=== PATIENT | female | born 1975 | race Hispanic/Latino ===

== ENCOUNTER 2016-03-08 09:27 | Emergency (ER) | payer SELFPAY ==
[2016-03-08 10:08] VITALS: BP 148/93
[2016-03-08] MEDS ORDERED: NORCO 5/325 PO ONE (12:34)
--- NOTE | 2016-03-08 12:37 | Emergency Department Report ---
HPI - General Chief Complaint: Extremity Injury, Upper Time Seen by Provider: 03/08/16 12:25 - HPI HPI: 40-year-old female presents today with right elbow pain post injury that occurred at work 6 days ago. Patient states her elbow was out of socket and was put in place by a chiropractor. Denies history of similar symptoms. Tried Tylenol without relief. Describes her pain as a 9 out of 10 constant, sharp, throbbing pain. Denies numbness, weakness, paresthesias. Denies fever, chills , nausea, vomiting, chest pain, shortness of breath, abdominal pain. ED Past Medical Hx - Past Medical History Hx Arthritis: Yes Hx Seizures: Yes (withdrawal from Xanax) Hx Psychiatric Treatment: Yes (anxiety) Hx HIV: No Additional medical history: anxiety, recent pneumonia diagnosis, - Surgical History Additional Surgical History: Hysterectomy, , tubal ligation. - Social History Smoking Status: Current Every Day Smoker Substance Use Type: None - Medications Home Medications: Home Medications Medication Instructions Recorded Confirmed Last Taken Type ALPRAZolam [Xanax TAB] 2 mg PO QDAY PRN #7 tablet 03/03/14 Unknown Rx Clindamycin HCl [Clindamycin Oral] 150 mg PO TID #90 cap 03/03/14 Unknown Rx Cyclobenzaprine HCl [Flexeril 5 MG 5 mg PO Q8HR PRN #10 tab 12/19/15 Unknown Rx TAB] traMADol [Ultram 50 MG tab] 50 mg PO Q6HR PRN #14 tablet 03/08/16 Unknown Rx ED Review of Systems ROS: Stated complaint: RT ARM INJURY Other details as noted in HPI Constitutional: denies: chills, fever, malaise Eyes: denies: eye pain ENT: denies: ear pain, throat pain, congestion Respiratory: denies: cough, shortness of breath, wheezing Cardiovascular: denies: chest pain, palpitations Endocrine: no symptoms reported Gastrointestinal: denies: abdominal pain, nausea, vomiting Musculoskeletal: joint swelling, arthralgia Skin: denies: rash Neurological: denies: headache, weakness, numbness, paresthesias Physical Exam - Physical Exam Vital Signs: Vital Signs 03/08/16 10:05 Temperature 97.9 F Pulse Rate 92 H Respiratory 18 Rate Blood Pressure 148/93 O2 Sat by Pulse 99 Oximetry Physical Exam: GENERAL: The patient is well-developed and well-nourished. Patient is in NAD. HEAD: Normocephalic. Atraumatic. CHEST/LUNGS: Clear to auscultation throughout. HEART/CARDIOVASCULAR: Regular rate and rhythm. No murmurs, rubs or gallops. ABDOMEN: Abdomen is soft, nontender. No guarding or rebound tenderness. RIGHT ELBOW: Limited range of motion due to pain. Tenderness to palpation over the radial aspect of right elbow. Full wrist and digit range of motion. Normal sensation. 2 point discrimination intact. Peripheral pulses intact. Capillary refill less than 2 seconds. NEURO: Alert and oriented x 3. Normal gait. ED Course Vital Signs 03/08/16 10:05 Temperature 97.9 F Pulse Rate 92 H Respiratory 18 Rate Blood Pressure 148/93 O2 Sat by Pulse 99 Oximetry ED Medical Decision Making - Lab Data Vital Signs 03/08/16 10:05 Temperature 97.9 F Pulse Rate 92 H Respiratory 18 Rate Blood Pressure 148/93 O2 Sat by Pulse 99 Oximetry - Radiology Data Radiology results: report reviewed RIGHT ELBOW, 3 views: History: Right elbow pain. The bony architecture is intact without evidence of fracture or dislocation. No significant soft tissue abnormality is seen. IMPRESSION: Normal right elbow. - Medical Decision Making 40-year-old female presents today with right elbow pain post injury at work. Her x-rays also revealed no fracture or dislocation. Patient is in no acute distress at this time. She will be discharged home and is encouraged to follow up with a primary care provider. She will be sent home on tramadol and is encouraged to return to the emergency room for any worsening symptoms. Critical care attestation.: If time is entered above; I have spent that time in minutes in the direct care of this critically ill patient, excluding procedure time. ED Disposition Clinical Impression: Elbow pain Qualifiers: Laterality: right Qualified Code(s): M25.521 - Pain in right elbow Disposition: DISCHARGED TO HOME OR SELFCARE Is pt being admited?: No Does the pt Need Aspirin: No Condition: Stable Instructions: Elbow Sprain (ED), Arthralgia (ED) Additional Instructions: Follow-up with primary care provider. Return to emergency department if symptoms worsen. Prescriptions: traMADol [Ultram 50 MG tab] 50 mg PO Q6HR PRN #14 tablet PRN Reason: Pain Referrals: PRIMARY CARE, [Primary Care Provider] - 3-5 Days EDUARDO PEACOCK MD [Staff Physician] - 3-5 Days [facility] [Outside] - 3-5 Days Forms: Work/School Release Form(ED), Accompanied Note Time of Disposition: 14:15
--- NOTE | 2016-03-08 14:06 | XRay Report ---
RIGHT ELBOW, 3 views: History: Right elbow pain. The bony architecture is intact without evidence of fracture or dislocation. No significant soft tissue abnormality is seen. IMPRESSION: Normal right elbow.
== END 2016-03-08 14:24 | disposition home or self-care (01) ==
LOC: ED 09:27
DX: M25.521 Pain in right elbow (principal); F17.200 Nicotine dependence, unspecified, uncomplicated; X58.XXXA Exposure to other specified factors, initial encounter; Y93.9 Activity, unspecified; Y92.9 Unspecified place or not applicable; Y99.9 Unspecified external cause status
CPT/HCPCS: 99283

== ENCOUNTER 2016-05-11 20:58 | Emergency (ER) | payer OTHER ==
--- NOTE | 2016-05-11 21:09 | Emergency Department Report ---
Stated Complaint: CHEST PAIN Time Seen by Provider: 05/11/16 21:06 - HPI History of Present Illness: 40-year-old female with history of smoking comes in with chest pain that started this morning. She reports that the chest pain is progressively getting worse now. She does report she took Tylenol without any relief. - Exam Physical Exam: Patient alert and oriented 3 she does appear in discomfort. Cardiovascular S1- S2 regular rate and rhythm respiratory clear to station bilateral MSE screening note: Focused history and physical exam performed. Due to findings the following was ordered: She's been evaluated with his provider chest pain protocol is ordered urinalysis and urine hCG ED Disposition for MSE Condition: Stable
[2016-05-11 21:51] LABS: Basophils % (Auto) 0.8 % (0.0-1.8); Eosinophils % (Auto) 1.4 % (0.0-4.3); Hematocrit 41.4 % (30.3-42.9); Hemoglobin 13.5 gm/dl (10.1-14.3); Mean Corpuscular HGB Conc 33 % (30-34); Mean Corpuscular Hemoglobin 28 pg (28-32); Mean Corpuscular Volume 84 fl (79-97); Platelet Count 215 K/mm3 (140-440); Red Blood Count 4.92 M/mm3 (3.65-5.03); Red Cell Distribution Width 14.7 % (13.2-15.2); White Blood Count 6.9 K/mm3 (4.5-11.0)
[2016-05-11 22:06] LABS: Anion Gap 14 mmol/L; Blood Urea Nitrogen 15 mg/dL (7-17); Calcium 8.8 mg/dL (8.4-10.2); Carbon Dioxide 25 mmol/L (22-30); Chloride 104.5 mmol/L (98-107); Glucose 81 mg/dL (65-100); Potassium 3.8 mmol/L (3.6-5.0); Sodium 140 mmol/L (137-145)
[2016-05-11] MEDS ORDERED: NACL 0.9% 1000 ML 1,000 ML IV ONE (23:45)
[2016-05-11] MEDS ORDERED: MORPHINE IV ONE (23:45)
--- NOTE | 2016-05-11 23:46 | Emergency Department Report ---
ED General Adult HPI - General Chief complaint: Chest Pain Stated complaint: CHEST PAIN Time Seen by Provider: 05/11/16 21:06 Source: patient, RN notes reviewed, old records reviewed Mode of arrival: Ambulatory Limitations: No Limitations - History of Present Illness Initial comments: This is a 40-year-old female. She is previously unknown to me. Does not currently have a primary care doctor. May have a history of elevated blood pressure, anxiety, arthritis, recent pneumonia diagnosis, surgical history includes and tubal ligation. She presents to the ER with chest pain. The chest pain is on the left side of the breast. It moved to the center of the chest. It has been constant since 8:00 in the morning. It increases with palpation of the chest wall and breasts. Mild nausea, mild shortness of breath , no diaphoresis. No fevers, no coughing, no leg pain. No leg swelling. No recent trips greater than 4 hours. In the past, she has seen obstetrics, Dr. Ayala, who recommended the patient have an outpatient mammogram performed, but she has failed to follow-up. -: Gradual Location: chest Severity scale (0 -10): 4 Quality: aching Consistency: constant Improves with: medication, rest Worsens with: movement Associated Symptoms: chest pain, shortness of breath - Related Data Previous Rx's Medication Instructions Recorded Last Taken Type ALPRAZolam [Xanax TAB] 2 mg PO QDAY PRN #7 tablet 03/03/14 Unknown Rx Clindamycin HCl [Clindamycin Oral] 150 mg PO TID #90 cap 03/03/14 Unknown Rx Cyclobenzaprine HCl [Flexeril 5 MG 5 mg PO Q8HR PRN #10 tab 12/19/15 Unknown Rx TAB] traMADol [Ultram 50 MG tab] 50 mg PO Q6HR PRN #14 tablet 03/08/16 Unknown Rx Allergies Allergy/AdvReac Type Severity Reaction Status Date / Time aspirin Allergy Diarrhea Verified 03/08/16 10:05 NSAIDS (Non-Steroidal Allergy Unknown Verified 03/03/14 20:55 Anti-Inflamma Penicillins Allergy Rash Verified 03/03/14 20:55 ED Review of Systems ROS: Stated complaint: CHEST PAIN Other details as noted in HPI Constitutional: denies: fever Eyes: denies: eye discharge ENT: denies: epistaxis Respiratory: see HPI Cardiovascular: chest pain Gastrointestinal: as per HPI Genitourinary: as per HPI Musculoskeletal: back pain Skin: denies: lesions Neurological: denies: headache Psychiatric: anxiety ED Past Medical Hx - Past Medical History Previous Medical History?: Yes Hx Arthritis: Yes Hx Seizures: Yes (withdrawal from Xanax) Hx Psychiatric Treatment: Yes (anxiety) Hx HIV: No Additional medical history: anxiety, recent pneumonia diagnosis, - Surgical History Past Surgical History?: Yes Additional Surgical History: Hysterectomy, , tubal ligation. - Social History Smoking Status: Current Every Day Smoker Substance Use Type: None - Medications Home Medications: Home Medications Medication Instructions Recorded Confirmed Last Taken Type ALPRAZolam [Xanax TAB] 2 mg PO QDAY PRN #7 tablet 03/03/14 Unknown Rx Clindamycin HCl [Clindamycin Oral] 150 mg PO TID #90 cap 03/03/14 Unknown Rx Cyclobenzaprine HCl [Flexeril 5 MG 5 mg PO Q8HR PRN #10 tab 12/19/15 Unknown Rx TAB] traMADol [Ultram 50 MG tab] 50 mg PO Q6HR PRN #14 tablet 03/08/16 Unknown Rx ED Physical Exam - General Limitations: No Limitations General appearance: alert, in no apparent distress - Head Head exam: Present: atraumatic, normocephalic - Eye Eye exam: Present: normal appearance, EOMI. Absent: nystagmus - ENT ENT exam: Present: normal exam, normal orophraynx, mucous membranes moist, normal external ear exam - Neck Neck exam: Present: normal inspection, full ROM. Absent: tenderness, meningismus - Respiratory Respiratory exam: Present: normal lung sounds bilaterally, chest wall tenderness , other (his reproducible central chest wall tenderness, and left breast tenderness. There is no redness, pus, streaking or crepitus. During the breast examination, I am escorted by nursing mode Monsalve). Absent: respiratory distress, wheezes, rales, rhonchi, stridor - Cardiovascular Cardiovascular Exam: Present: regular rate, normal rhythm, normal heart sounds. Absent: bradycardia, tachycardia, irregular rhythm, systolic murmur, diastolic murmur, rubs, gallop - GI/Abdominal GI/Abdominal exam: Present: soft, normal bowel sounds. Absent: distended, tenderness, guarding, rebound, rigid, pulsatile mass - Extremities Exam Extremities exam: Present: normal inspection, full ROM, normal capillary refill. Absent: tenderness, pedal edema, joint swelling, calf tenderness - Back Exam Back exam: Present: normal inspection, full ROM. Absent: tenderness, CVA tenderness (R), CVA tenderness (L), muscle spasm, paraspinal tenderness, vertebral tenderness - Neurological Exam Neurological exam: Present: alert, oriented X3, normal gait, other (Extraocular movements intact. Tongue midline. No facial droop. Facial sensation intact to light touch in the V1, V2, V3 distribution bilaterally. 5 and 5 strength in 4 extremities.. Sensation is intact to light touch in 4 extremities.). Absent : motor sensory deficit - Psychiatric Psychiatric exam: Present: normal affect, normal mood - Skin Skin exam: Present: warm, dry, intact, normal color. Absent: rash ED Course Vital Signs 05/11/16 05/12/16 05/12/16 21:00 00:43 01:23 Temperature 97.2 F L Pulse Rate 74 74 67 Respiratory 20 16 Rate Blood Pressure 138/86 Blood Pressure 164/99 151/89 [Right] O2 Sat by Pulse 99 97 Oximetry 05/12/16 04:20 Temperature Pulse Rate Respiratory 20 Rate Blood Pressure Blood Pressure [Right] O2 Sat by Pulse Oximetry - Reevaluation(s) Reevaluation #1: 05/12/16 00:43 Differential diagnosis: Mastodynia, costochondritis, pneumonia, pulmonary embolus, acute coronary syndrome Assessment and plan: 40-year-old female with clinically atypical and reproducible chest wall pain and breast pain. No pulmonary embolus or DVT risk factors, low risk by well's criteria, perc negative, low MAGGI score, low risk by heart score. Symptoms have been present for over 12 hours, troponins are negative 2. EKG morphologically unremarkable, and unchanged from prior EKG. No family history of heart disease. Clinically doubt pneumonia given her lack of focal pulmonary findings, and essentially normal chest x-ray. A d-dimer sent to risk stratify the patient for pulmonary embolus. She is allergic/intolerant of NSAIDs, so she will be treated with IV fluids and morphine for pain. Given clinical history, and findings thus far, the patient is at low risk for major adverse cardiac event. Reevaluation #2: 05/12/16 04:08 Nuclear medicine study is low probability. Chest x-ray is negative. Repeat EKG is morphologically unremarkable and unchanged. Troponin negative 3. Vital signs stable. Patient is suitable to follow up with outpatient primary care and cardiology. ED Medical Decision Making - Lab Data Result diagrams: 05/11/16 21:37 05/11/16 21:37 Vital Signs 05/11/16 05/12/16 21:00 00:43 Temperature 97.2 F L Pulse Rate 74 74 Respiratory 20 16 Rate Blood Pressure 164/99 151/89 [Right] O2 Sat by Pulse 99 97 Oximetry Lab Results 05/11/16 05/11/16 05/12/16 Range/Units 21:37 21:37 00:08 WBC 6.9 (4.5-11.0) K/mm3 RBC 4.92 (3.65-5.03) M/mm3 Hgb 13.5 (10.1-14.3) gm/dl Hct 41.4 (30.3-42.9) % MCV 84 (79-97) fl MCH 28 (28-32) pg MCHC 33 (30-34) % RDW 14.7 (13.2-15.2) % Plt Count 215 (140-440) K/mm3 Lymph % (Auto) 33.2 (13.4-35.0) % [place] % (Auto) 4.7 (0.0-7.3) % Eos % (Auto) 1.4 (0.0-4.3) % Baso % (Auto) 0.8 (0.0-1.8) % Lymph # 2.3 (1.2-5.4) K/mm3 [place] # 0.3 (0.0-0.8) K/mm3 Eos # 0.1 (0.0-0.4) K/mm3 Baso # 0.1 (0.0-0.1) K/mm3 Seg Neutrophils % 59.9 (40.0-70.0) % Seg Neutrophils # 4.1 (1.8-7.7) K/mm3 PT 12.8 (12.2-14.9) Sec. INR 0.97 (0.87-1.13) D-Dimer 245.98 H (0-234) ng/mlDDU Sodium 140 (137-145) mmol/L Potassium 3.8 (3.6-5.0) mmol/L Chloride 104.5 (98-107) mmol/L Carbon Dioxide 25 (22-30) mmol/L Anion Gap 14 mmol/L BUN 15 (7-17) mg/dL Creatinine 0.6 L (0.7-1.2) mg/dL Estimated GFR > 60 ml/min BUN/Creatinine Ratio 25.00 % Glucose 81 (65-100) mg/dL Calcium 8.8 (8.4-10.2) mg/dL Troponin T < 0.010 (0.00-0.029) ng/mL - EKG Data -: EKG Interpreted by Me EKG shows normal: sinus rhythm, axis, intervals, QRS complexes, ST-T waves Rate: normal - EKG Data When compared to previous EKG there are: no significant change Interpretation: normal EKG 05/12/16 00:45 Normal sinus, 74 bpm, normal intervals, normal axis, not morphologically consistent with STEMI, unchanged from prior EKG from 12/19/2015. - Radiology Data Radiology results: report reviewed, image reviewed interpreted by me: X-ray of the chest is negative for acute disease Nuclear medicine study is low probability for pulmonary embolus. Critical care attestation.: If time is entered above; I have spent that time in minutes in the direct care of this critically ill patient, excluding procedure time. ED Disposition Clinical Impression: Chest pain Disposition: DISCHARGED TO HOME OR SELFCARE Is pt being admited?: No Does the pt Need Aspirin: No Condition: Good Instructions: Chest Pain (ED) Additional Instructions: Follow up with a automobile sales representative within the next 3-[address] Alirio Bright is a local urban gardening specialist. Follow-up with the primary care doctor within the next 2-3 weeks. It is very important to closely follow up with an outpatient primary care doctor to have an outpatient mammogram arranged. Not following up for outpatient mammogram may result in an undiagnosed tumor/cancer/malignancy. Return to the ER right away with new pain, worsened pain, migration of pain, fevers or chills, intractable nausea or vomiting, inability to tolerate liquid feeds. Dr. Rae is a local primary care doctor. Take Tylenol every 4-6 hours as needed for pain. This medication can be purchased [id number]. Referrals: PRIMARY CAREMD [Primary Care Provider] - 3-5 Days KRISTIN RAE MD [Staff Physician] - 3-5 Days ALIRIO BRIGHT MD [Staff Physician] - 3-5 Days Forms: Work/School Release Form(ED)
[2016-05-12 00:39] LABS: INR 0.97 (0.87-1.13)
[2016-05-12] MEDS ORDERED: NITROSTAT SL PRN (01:04)
[2016-05-12 01:25] VITALS: BP 138/86
[2016-05-12 02:27] LABS: Bilirubin,Urine NEG (Negative); Blood,Urine NEG (Negative); Ketones,Urine TR mg/dL (Negative); Leukocyte Esterase,Urine NEG (Negative); Mucus,Urine FEW /HPF; Nitrite,Urine NEG (Negative); Protein,Urine <15 mg/dL mg/dL (Negative); Urobilinogen,Urine < 2.0 mg/dL (<2.0); WBC,Urine < 1.0 /HPF (0.0-6.0)
--- NOTE | 2016-05-12 03:18 | Nuclear Medicine Report ---
FINAL REPORT PROCEDURE: NM LUNG SCAN PERF/VENT TECHNIQUE: 5 mCi Tc-99m MAA was injected IV for pulmonary perfusion imaging in multiple projections. 15 MCi xenon was inhaled for pulmonary ventilation imaging in multiple projections. Injection site: RIGHT antecubital fossa. CPT 71508 REGULATORY GUIDELINES: The patient was released based upon guidelines established in [place] State Regulations for Protection Against Radiation, Chapter 7605-57-39-35, Release of Individuals Containing Radioactive Drugs or Implants. HISTORY: cp ? pe COMPARISON: No prior studies are available for comparison. FINDINGS: Perfusion: No defects . Ventilation: No defects . IMPRESSION: Normal Examination
[2016-05-12] MEDS ORDERED: TYLENOL PO ONE (04:07)
--- NOTE | 2016-05-12 08:32 | XRay Report ---
ROUTINE CHEST, TWO VIEWS: PA and lateral views demonstrate the heart and mediastinal contour to be of normal size and shape. The lungs are clear and fully expanded and the soft tissues and bony structures are normal. IMPRESSION: Normal study.
== END 2016-05-12 04:24 | disposition home or self-care (01) ==
LOC: ED 20:58
DX: R07.89 Other chest pain (principal); M19.90 Unspecified osteoarthritis, unspecified site; R56.9 Unspecified convulsions; F41.9 Anxiety disorder, unspecified; F17.200 Nicotine dependence, unspecified, uncomplicated; Z90.710 Acquired absence of both cervix and uterus; Z98.51 Tubal ligation status; Z88.0 Allergy status to penicillin; Z88.6 Allergy status to analgesic agent
CPT/HCPCS: 36415; 71020; 78582; 80048; 81001; 84484; 85025; 85379; 85610; 93005; 93010; 96361; 96374; 99285; A9540; A9558; J2270; J7030

== ENCOUNTER 2016-07-19 12:37 | Emergency (ER) | payer SELFPAY ==
[2016-07-19 14:28] LABS: Basophils % (Auto) 0.6 % (0.0-1.8); Eosinophils % (Auto) 1.6 % (0.0-4.3); Hematocrit 41.4 % (30.3-42.9); Hemoglobin 13.5 gm/dl (10.1-14.3); Mean Corpuscular HGB Conc 33 % (30-34); Mean Corpuscular Hemoglobin 28 pg (28-32); Mean Corpuscular Volume 85 fl (79-97); Platelet Count 223 K/mm3 (140-440); Red Blood Count 4.88 M/mm3 (3.65-5.03); Red Cell Distribution Width 15.2 % (13.2-15.2)
[2016-07-19 14:50] LABS: Anion Gap 17 mmol/L; Blood Urea Nitrogen 9 mg/dL (7-17); Calcium 8.7 mg/dL (8.4-10.2); Carbon Dioxide 24 mmol/L (22-30); Glucose 86 mg/dL (65-100); Potassium 3.9 mmol/L (3.6-5.0); Sodium 147 mmol/L (137-145)
[2016-07-19 16:59] LABS: Urine Drugs of Abuse Note Disclamer
[2016-07-19 17:09] LABS: Bacteria,Urine 1+ /HPF (Negative); Bilirubin,Urine NEG (Negative); Blood,Urine SM (Negative); Ketones,Urine NEG (Negative); Leukocyte Esterase,Urine NEG (Negative); Nitrite,Urine NEG (Negative); Protein,Urine <15 mg/dL mg/dL (Negative); Urobilinogen,Urine < 2.0 mg/dL (<2.0)
--- NOTE | 2016-07-19 23:18 | Emergency Department Report ---
ED Psych HPI - General Chief Complaint: Psych Stated Complaint: MH/EVALUATION Time Seen by Provider: 07/19/16 23:11 Source: patient, family Mode of arrival: Ambulatory - History of Present Illness Initial Comments: Patient is a 40-year-old female with history of chronic pain and anxiety presents to the ER for supposed suicidal ideation. As per triage and prior notes patient is suicidal and was found to be holding a gun to her head stating "I want to I want my son ". Patient reports that she was on Facebook live and was playing with a 4-year-old nephew, and was holding a fake laser gun to her head. She reports she did not report any suicidal ideation or plan. Patient is emotional regarding incarceration of her son since the fall. Patient adamantly denies that she is suicidal, homicidal, hallucinating, or delusional. Speech patient denies substance abuse or owning firearms, or suicide attempts in the past. Otherwise no fevers, chills, nausea , vomiting, diarrhea, chest pain, shortness breath, abdominal pain, travel, sick contacts MD Complaint: suicidal ideation, feels depressed - Related Data Home Medications Medication Instructions Recorded Confirmed Last Taken Oxycodone HCl/Acetaminophen 10 mg PO TID 07/19/16 07/19/16 Unknown [Percocet 10/325 mg] Previous Rx's Medication Instructions Recorded Last Taken Type ALPRAZolam [Xanax TAB] 2 mg PO QDAY PRN #7 tablet 03/03/14 Unknown Rx Allergies Allergy/AdvReac Type Severity Reaction Status Date / Time aspirin Allergy Diarrhea Verified 03/08/16 10:05 NSAIDS (Non-Steroidal Allergy Unknown Verified 03/03/14 20:55 Anti-Inflamma Penicillins Allergy Rash Verified 03/03/14 20:55 ED Review of Systems ROS: Stated complaint: MH/EVALUATION Other details as noted in HPI Comment: All other systems reviewed and negative ED Past Medical Hx - Past Medical History Previous Medical History?: Yes Hx Arthritis: Yes Hx Seizures: Yes (withdrawal from Xanax) Hx Psychiatric Treatment: Yes (anxiety) Hx HIV: No Additional medical history: anxiety, recent pneumonia diagnosis, - Surgical History Past Surgical History?: Yes Additional Surgical History: Hysterectomy, , tubal ligation. - Social History Smoking Status: Current Every Day Smoker Substance Use Type: Alcohol, Non Opiate Pain, Prescribed - Medications Home Medications: Home Medications Medication Instructions Recorded Confirmed Last Taken Type ALPRAZolam [Xanax TAB] 2 mg PO QDAY PRN #7 tablet 03/03/14 07/19/16 Unknown Rx Oxycodone HCl/Acetaminophen 10 mg PO TID 07/19/16 07/19/16 Unknown History [Percocet 10/325 mg] ED Physical Exam - General Limitations: No Limitations General appearance: alert, in no apparent distress - Head Head exam: Present: atraumatic, normocephalic - Eye Eye exam: Present: normal appearance - ENT ENT exam: Present: mucous membranes moist - Neck Neck exam: Present: normal inspection - Respiratory Respiratory exam: Present: normal lung sounds bilaterally. Absent: respiratory distress - Cardiovascular Cardiovascular Exam: Present: regular rate, normal rhythm. Absent: systolic murmur, diastolic murmur, rubs, gallop - GI/Abdominal GI/Abdominal exam: Present: soft, normal bowel sounds - Extremities Exam Extremities exam: Present: normal inspection - Back Exam Back exam: Present: normal inspection - Neurological Exam Neurological exam: Present: alert, oriented X3 - Psychiatric Psychiatric exam: Present: normal mood, depressed, anxious, other (emotional). Absent: homicidal ideation, suicidal ideation - Skin Skin exam: Present: warm, dry, intact, normal color. Absent: rash ED Course Vital Signs 07/19/16 07/19/16 12:47 16:34 Temperature 98.4 F Pulse Rate 91 H Respiratory 18 20 Rate Blood Pressure 152/102 O2 Sat by Pulse 94 100 Oximetry ED Medical Decision Making - Lab Data Result diagrams: 07/19/16 14:11 07/19/16 14:11 Critical care attestation.: If time is entered above; I have spent that time in minutes in the direct care of this critically ill patient, excluding procedure time. ED Disposition Condition: Stable Referrals: PRIMARY CARE, [Primary Care Provider] - 3-5 Days
[2016-07-19] MEDS ORDERED: XANAX PO ONE (23:25)
[2016-07-19] MEDS ORDERED: TYLENOL PO ONE (23:25)
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
[2016-07-20 11:09] LABS: Alanine Aminotransferase 8 units/L (7-56); Alkaline Phosphatase 90 units/L (35-129)
[2016-07-20] MEDS ORDERED: XANAX PO ONE ×2 (12:13→15:00)
[2016-07-20] MEDS: PROzac PO SCH (18:57)
[2016-07-20] MEDS: VISTARIL PO SCH (21:30)
[2016-07-20] MEDS ORDERED: TYLENOL ONE (23:47)
[2016-07-20] MEDS ORDERED: TYLENOL PO ONE (23:53)
[2016-07-21] MEDS ORDERED: TYLENOL PO ONE (08:33)
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
[2016-07-21] MEDS ORDERED: VISTARIL ONE (09:48)
[2016-07-21] MEDS: PROzac PO SCH (10:29)
[2016-07-21] MEDS: XANAX PO PRN (16:20)
[2016-07-22] MEDS: VISTARIL PO SCH (02:57)
[2016-07-22] MEDS ORDERED: TYLENOL ONE (06:45)
[2016-07-22] MEDS: PROzac PO SCH (10:02)
[2016-07-22] MEDS: XANAX PO PRN (10:02)
--- NOTE | 2016-07-22 14:29 | Progress Note ---
Subjective - Reason for Consult Consult date: 07/22/16 Reason for consult: psychiatric follow up - Chief Complaint Chief complaint: "I was being stupid" Patient is a 40-year-old female with history of chronic pain and anxiety presents to the ER for supposed suicidal ideation. Today patient is calm and cooperative, Patient stated that she feels anxious about getting home and back to work. She denies N/V, body aches, or sleep disturbance. She denies SI/HI's, AVH's, or depression symptoms. Mental Status Exam - Vital signs Last Vital Signs Temp 97.9 F 07/21/16 22:00 Pulse 76 07/21/16 22:00 Resp 18 07/21/16 22:00 BP 128/90 07/21/16 22:00 Pulse Ox 98 07/21/16 22:00 - Exam Orientation: time, place, person Affect: anxious Mood: congruent with affect Thought content: other (no SI, no HI) Thought Process: Intact Perceptions: none Speech: normal rate and pattern Concentration: focused Motor activity: normal Level of consciousness: alert Memory: Intact Sleep Symptoms: None Interaction: cooperative Assessment and Plan Impression: Patient is a 40-year-old female with history of chronic pain and anxiety presents to the ER for supposed suicidal ideation. Today patient is calm and cooperative, Patient stated that she feels anxious about getting home and back to work. She denies N/V, body aches, or sleep disturbance. She denies SI/HI's, AVH's, or depression symptoms. Denies any other side effects of her other psy medication. No acute withdrawals (Benzos) noted. Patient sees a psychiatrist at [facility]. Recommendation/Plan: Rescind 1013 and follow up with outpatient mental health provider Avoid alcohol or other mood altering substances. will need to pick patient up and verify no concerns with her return home.
[2016-07-22 18:46] VITALS: BP 132/80
== END 2016-07-22 18:49 | disposition home or self-care (01) ==
LOC: EEVIPCON 12:37 → ED 12:37
DX: R45.851 Suicidal ideations (principal); F17.200 Nicotine dependence, unspecified, uncomplicated
CPT/HCPCS: 36415; 80048; 80164; 80307; 81001; 84075; 84450; 84460; 84703; 85025; 99284; G0480; 80320; Q0177

== ENCOUNTER 2016-07-26 17:01 | Emergency (ER) | payer SELFPAY | END 2016-07-26 17:02 | disposition left against medical advice (07) | LOC: ED 17:01 | DX: R41.82 Altered mental status, unspecified (principal); R45.851 Suicidal ideations; Z53.21 Procedure and treatment not carried out due to patient leaving prior to being seen by health care provider ==

== ENCOUNTER 2017-06-20 00:21 | Emergency (ER) | payer SELFPAY ==
[2017-06-20 01:43] LABS: Basophils % (Auto) 0.5 % (0.0-1.8); Eosinophils # (Auto) 0.1 K/mm3 (0.0-0.4); Eosinophils % (Auto) 0.6 % (0.0-4.3); Hematocrit 45.6 % (30.3-42.9); Hemoglobin 15.3 gm/dl (10.1-14.3); Lymphocytes # (Auto) 1.9 K/mm3 (1.2-5.4); Lymphocytes % (Auto) 18.5 % (13.4-35.0); Mean Corpuscular HGB Conc 34 % (30-34); Mean Corpuscular Hemoglobin 31 pg (28-32); Mean Corpuscular Volume 93 fl (79-97); Monocytes # (Auto) 0.5 K/mm3 (0.0-0.8); Monocytes % (Auto) 4.8 % (0.0-7.3); Platelet Count 224 K/mm3 (140-440); Red Blood Count 4.93 M/mm3 (3.65-5.03)
[2017-06-20 02:03] LABS: BUN/Creatinine Ratio 24; Blood Urea Nitrogen 12 mg/dL (7-17); Calcium 8.8 mg/dL (8.4-10.2); Hemolysis Index 4
[2017-06-20] MEDS ORDERED: TYLENOL PO ONE (03:42)
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
[2017-06-20] MEDS ORDERED: NORCO 5/325 ONE (05:53)
[2017-06-20] MEDS ORDERED: NORCO 5/325 PO ONE (05:54)
--- NOTE | 2017-06-20 06:15 | Ultrasound Report ---
FINAL REPORT PROCEDURE: US BREAST LT LIMITED TECHNIQUE: Real-time sonography in multiple planes of the LEFT breast was performed with image documentation; limited. HISTORY: left breast pain, bruising COMPARISON: No prior studies are available for comparison. FINDINGS: LEFT breast: Breast parenchymal tissue imaged has a normal echogenicity. No evidence of solid or cystic mass in the area of concern. IMPRESSION: Normal Examination.
[2017-06-20 07:01] VITALS: BP 146/97
== END 2017-06-20 06:59 | disposition home or self-care (01) ==
LOC: ED 00:21
DX: M94.0 Chondrocostal junction syndrome [Tietze] (principal); M19.90 Unspecified osteoarthritis, unspecified site; F17.200 Nicotine dependence, unspecified, uncomplicated; Z90.710 Acquired absence of both cervix and uterus; Z98.51 Tubal ligation status; Z88.6 Allergy status to analgesic agent; Z88.0 Allergy status to penicillin; Z91.018 Allergy to other foods
CPT/HCPCS: 36415; 80048; 84484; 85025; 93005; 93010

== ENCOUNTER 2017-08-12 03:34 | Emergency (ER) | payer SELFPAY ==
[2017-08-12] MEDS ORDERED: CATAPRES ONE (04:02)
[2017-08-12] MEDS ORDERED: TYLENOL ONE (04:03)
[2017-08-12] MEDS ORDERED: CATAPRES PO ONE (04:06)
--- NOTE | 2017-08-12 04:31 | XRay Report ---
FINAL REPORT PROCEDURE: XR SHOULDER 2+V RT TECHNIQUE: Right shoulder radiographs including AP views in internal and external rotation and abduction. CPT 94584 HISTORY: Right shoulder pain COMPARISON: No prior studies are available for comparison. FINDINGS: Fracture (s) and/or Dislocation(s): None . Joint space(s): Normal . Soft tissues: Normal . Bone mineralization: Normal . Foreign bodies: None . IMPRESSION: Normal Examination
[2017-08-12] MEDS ORDERED: TYLENOL PO ONE (04:36)
[2017-08-12 05:05] LABS: Basophils % (Auto) 0.4 % (0.0-1.8); Eosinophils # (Auto) 0.1 K/mm3 (0.0-0.4); Hematocrit 46.8 % (30.3-42.9); Hemoglobin 15.7 gm/dl (10.1-14.3); Lymphocytes # (Auto) 2.2 K/mm3 (1.2-5.4); Lymphocytes % (Auto) 24.5 % (13.4-35.0); Mean Corpuscular HGB Conc 34 % (30-34); Mean Corpuscular Hemoglobin 32 pg (28-32); Mean Corpuscular Volume 94 fl (79-97); Monocytes # (Auto) 0.6 K/mm3 (0.0-0.8); Monocytes % (Auto) 6.3 % (0.0-7.3); Platelet Count 217 K/mm3 (140-440); Red Blood Count 4.98 M/mm3 (3.65-5.03); Red Cell Distribution Width 16.2 % (13.2-15.2)
[2017-08-12 05:27] LABS: BUN/Creatinine Ratio 22; Blood Urea Nitrogen 11 mg/dL (7-17); Hemolysis Index 4
[2017-08-12 06:15] VITALS: BP 152/91
== END 2017-08-12 09:45 | disposition left against medical advice (07) ==
LOC: ED 03:34
DX: M25.511 Pain in right shoulder (principal); Z53.21 Procedure and treatment not carried out due to patient leaving prior to being seen by health care provider
CPT/HCPCS: 36415; 80048; 84484; 85025; 93005; 93010

== ENCOUNTER 2017-09-04 06:15 | Emergency (ER) | payer OTHER ==
--- NOTE | 2017-09-04 07:20 | Emergency Department Report ---
ED General Adult HPI - General Chief complaint: Headache Stated complaint: HEADACHE Time Seen by Provider: 09/04/17 06:47 Source: patient Mode of arrival: Ambulatory Limitations: No Limitations - History of Present Illness Initial comments: Patient and his department with a complaint of elevated blood pressure. Patient states that her blood pressure was 200/100 and something home and she took 50 mg metoprolol. Patient states the metoprolol belonged to her significant other and she has not had a prescription for hypertension medications for quite some time now. Patient also complains of a diffuse headache that she describes as pressure-like and not the worse headache of her life along with diffuse chest pain that does not radiate. -: Gradual Location: head, chest Radiation: non-radiation Severity scale (0 -10): 5 Quality: dull Improves with: none Worsens with: none Associated Symptoms: chest pain, headaches Treatments Prior to Arrival: none, other (50 mg metoprolol) - Related Data Home Medications Medication Instructions Recorded Confirmed Last Taken Oxycodone HCl/Acetaminophen 10 mg PO TID 07/19/16 07/19/16 Unknown [Percocet 10/325 mg] Previous Rx's Medication Instructions Recorded Last Taken Type ALPRAZolam [Xanax TAB] 2 mg PO QDAY PRN #7 tablet 03/03/14 Unknown Rx Cyclobenzaprine HCl [Flexeril 5 MG 5 mg PO TID PRN #20 tab 06/20/17 Unknown Rx TAB] traMADol [Ultram 50 MG tab] 50 mg PO Q8H PRN #15 tablet 06/20/17 Unknown Rx Butalb/Acetamin/Caff 50-325-40 1 tab PO Q6HR PRN #20 tab 09/04/17 Unknown Rx [Fioricet] Lisinopril [Prinivil] 10 mg PO DAILY #30 tablet 09/04/17 Unknown Rx Allergies Allergy/AdvReac Type Severity Reaction Status Date / Time aspirin Allergy Diarrhea Verified 03/08/16 10:05 NSAIDS (Non-Steroidal Allergy Unknown Verified 03/03/14 20:55 Anti-Inflamma Penicillins Allergy Rash Verified 03/03/14 20:55 ED Review of Systems ROS: Stated complaint: HEADACHE Other details as noted in HPI Comment: All other systems reviewed and negative Constitutional: denies: chills, fever Eyes: denies: eye pain, eye discharge, vision change ENT: denies: ear pain, throat pain Respiratory: denies: cough, shortness of breath, wheezing Cardiovascular: denies: chest pain, palpitations Endocrine: no symptoms reported Gastrointestinal: denies: abdominal pain, nausea, diarrhea Genitourinary: denies: urgency, dysuria, discharge Musculoskeletal: denies: back pain, joint swelling, arthralgia Skin: denies: rash, lesions Neurological: denies: headache, weakness, paresthesias Psychiatric: denies: anxiety, depression Hematological/Lymphatic: denies: easy bleeding, easy bruising ED Past Medical Hx - Past Medical History Previous Medical History?: Yes Hx Hypertension: Yes (no meds) Hx GERD: Yes (PUD) Hx Arthritis: Yes Hx Seizures: Yes (withdrawal from Xanax) Hx Psychiatric Treatment: Yes (anxiety) Hx HIV: No Additional medical history: anxiety, pneumonia - Surgical History Past Surgical History?: Yes Additional Surgical History: Hysterectomy, , tubal ligation. - Social History Smoking Status: Current Every Day Smoker Substance Use Type: Alcohol - Medications Home Medications: Home Medications Medication Instructions Recorded Confirmed Last Taken Type ALPRAZolam [Xanax TAB] 2 mg PO QDAY PRN #7 tablet 03/03/14 07/19/16 Unknown Rx Oxycodone HCl/Acetaminophen 10 mg PO TID 07/19/16 07/19/16 Unknown History [Percocet 10/325 mg] Cyclobenzaprine HCl [Flexeril 5 MG 5 mg PO TID PRN #20 tab 06/20/17 Unknown Rx TAB] traMADol [Ultram 50 MG tab] 50 mg PO Q8H PRN #15 tablet 06/20/17 Unknown Rx Butalb/Acetamin/Caff 50-325-40 1 tab PO Q6HR PRN #20 tab 09/04/17 Unknown Rx [Fioricet] Lisinopril [Prinivil] 10 mg PO DAILY #30 tablet 09/04/17 Unknown Rx ED Physical Exam - General Limitations: No Limitations General appearance: alert, in no apparent distress - Head Head exam: Present: atraumatic, normocephalic - Eye Eye exam: Present: normal appearance, PERRL, EOMI - ENT ENT exam: Present: mucous membranes moist - Neck Neck exam: Present: normal inspection - Respiratory Respiratory exam: Present: normal lung sounds bilaterally. Absent: respiratory distress, wheezes, rales, rhonchi - Cardiovascular Cardiovascular Exam: Present: regular rate, normal rhythm. Absent: systolic murmur, diastolic murmur, rubs, gallop - GI/Abdominal GI/Abdominal exam: Present: soft, normal bowel sounds. Absent: distended, tenderness - Extremities Exam Extremities exam: Present: normal inspection - Back Exam Back exam: Present: normal inspection - Neurological Exam Neurological exam: Present: alert, oriented X3, CN II-XII intact, normal gait, other (normal cerebellar his exam). Absent: motor sensory deficit - Psychiatric Psychiatric exam: Present: normal affect, normal mood - Skin Skin exam: Present: warm, dry, intact, normal color. Absent: rash ED Course Vital Signs 09/04/17 09/04/17 09/04/17 06:19 06:41 06:45 Temperature 97.6 F Pulse Rate 88 80 76 Respiratory 18 18 18 Rate Blood Pressure 199/119 167/103 Blood Pressure [Left] O2 Sat by Pulse 97 96 93 Oximetry 09/04/17 09/04/17 09/04/17 06:48 07:00 08:29 Temperature 97.4 F L Pulse Rate 81 77 76 Respiratory 15 16 18 Rate Blood Pressure 164/106 Blood Pressure 168/93 169/104 [Left] O2 Sat by Pulse 98 91 96 Oximetry ED Medical Decision Making - Lab Data Result diagrams: 09/04/17 07:42 09/04/17 07:42 - EKG Data EKG shows normal: sinus rhythm Rate: normal - EKG Data When compared to previous EKG there are: no significant change Interpretation: no acute changes - Medical Decision Making Discussed results with patient and her guest Critical care attestation.: If time is entered above; I have spent that time in minutes in the direct care of this critically ill patient, excluding procedure time. ED Disposition Clinical Impression: Hypertension, Headache Disposition: DC-01 TO HOME OR SELFCARE Is pt being admited?: No Does the pt Need Aspirin: No Condition: Stable Instructions: Hypertension (ED) Additional Instructions: Return if worse Prescriptions: Butalb/Acetamin/Caff 50-325-40 [Fioricet] 1 tab PO Q6HR PRN #20 tab PRN Reason: Headache Lisinopril [Prinivil] 10 mg PO DAILY #30 tablet Referrals: PRIMARY CARE, [Primary Care Provider] - 3-5 Days [facility] [Outside] - 3-5 Days [facility] [Outside] - 3-5 Days [facility] [Other] - 3-5 Days
[2017-09-04 08:12] LABS: Basophils % (Auto) 0.7 % (0.0-1.8); Eosinophils % (Auto) 0.6 % (0.0-4.3); Hematocrit 44.5 % (30.3-42.9); Hemoglobin 15.2 gm/dl (10.1-14.3); Lymphocytes # (Auto) 1.7 K/mm3 (1.2-5.4); Mean Corpuscular HGB Conc 34 % (30-34); Mean Corpuscular Hemoglobin 32 pg (28-32); Mean Corpuscular Volume 94 fl (79-97); Monocytes # (Auto) 0.3 K/mm3 (0.0-0.8); Monocytes % (Auto) 5.1 % (0.0-7.3); Platelet Count 182 K/mm3 (140-440); Red Blood Count 4.76 M/mm3 (3.65-5.03); Red Cell Distribution Width 16.4 % (13.2-15.2)
--- NOTE | 2017-09-04 08:15 | XRay Report ---
PORTABLE CHEST: Chest pain An AP portable view of the chest demonstrates a normal cardiac contour considering the limits of this technique. The lungs are clear with no evidence of infiltrate, fluid or failure. IMPRESSION: Normal portable chest.
--- NOTE | 2017-09-04 08:21 | Cat Scan Report ---
CRANIAL CT SCAN: Headache. Serial contiguous axial images were obtained through the cranium. Intravenous contrast material was not administered. The ventricles are normal in size and appearance. There is no mass effect or midline shift. No areas of abnormally increased or decreased attenuation are seen. No mass lesion is seen. The mastoid air cells and visualized portions of the sinuses are normal. IMPRESSION: Cranial CT scan within normal limits.
[2017-09-04] MEDS ORDERED: TYLENOL ONE (08:23)
[2017-09-04 08:30] LABS: BUN/Creatinine Ratio 16; Blood Urea Nitrogen 8 mg/dL (7-17); Calcium 9.4 mg/dL (8.4-10.2); Hemolysis Index 12
[2017-09-04] MEDS ORDERED: TYLENOL PO ONE ×2 (08:31→08:33)
[2017-09-04] MEDS ORDERED: FIORICET PO ONE (08:40)
[2017-09-04 10:00] VITALS: BP 150/97
== END 2017-09-04 09:19 | disposition home or self-care (01) ==
LOC: ED 06:15
DX: I10 Essential (primary) hypertension (principal); R07.89 Other chest pain; K21.9 Gastro-esophageal reflux disease without esophagitis; M19.90 Unspecified osteoarthritis, unspecified site; R56.9 Unspecified convulsions; F41.9 Anxiety disorder, unspecified; F17.200 Nicotine dependence, unspecified, uncomplicated; Z98.51 Tubal ligation status; Z90.710 Acquired absence of both cervix and uterus; Z79.899 Other long term (current) drug therapy; Z88.0 Allergy status to penicillin; Z88.6 Allergy status to analgesic agent; Z88.8 Allergy status to other drugs, medicaments and biological substances
CPT/HCPCS: 36415; 70450; 71045; 80048; 84484; 85025; 93005; 93010

== ENCOUNTER 2018-03-05 20:16 | Emergency (ER) | payer SELFPAY ==
[2018-03-05 21:03] LABS: Basophils % (Auto) 0.6 % (0.0-1.8); Eosinophils # (Auto) 0.1 K/mm3 (0.0-0.4); Eosinophils % (Auto) 0.9 % (0.0-4.3); Hematocrit 43.2 % (30.3-42.9); Hemoglobin 15.3 gm/dl (10.1-14.3); Lymphocytes # (Auto) 2.1 K/mm3 (1.2-5.4); Lymphocytes % (Auto) 28.7 % (13.4-35.0); Mean Corpuscular HGB Conc 36 % (30-34); Mean Corpuscular Volume 99 fl (79-97); Monocytes # (Auto) 0.5 K/mm3 (0.0-0.8); Monocytes % (Auto) 6.6 % (0.0-7.3); Platelet Count 215 K/mm3 (140-440); Red Blood Count 4.38 M/mm3 (3.65-5.03); Red Cell Distribution Width 17.1 % (13.2-15.2)
[2018-03-05] MEDS ORDERED: NITROSTAT SL ONE ×2 (21:04→21:07)
--- NOTE | 2018-03-05 21:08 | Emergency Department Report ---
ED Chest Pain HPI - General Chief Complaint: High BP Stated Complaint: HIGH BP Time Seen by Provider: 03/05/18 21:00 Source: patient Mode of arrival: Ambulatory Limitations: No Limitations - History of Present Illness Initial Comments: Patient is 42 years old female with history of hypertension. Recently started on Norvasc 5 mg. Patient presented to the ER complaining of substernal chest pain for approximately one week now on and off. Patient described her pain as pressure and she noted that her blood pressures really high. Patient stated that her blood pressure was 200/110. Patient denied any headache, neck pain, weakness numbness or tingling sensation. Patient also denied any shortness of breath or palpitations MD Complaint: chest pain -: week(s) Onset: during rest Pain Location: substernal Pain Radiation: none Quality: pressure - Related Data Home Medications Medication Instructions Recorded Confirmed Last Taken Oxycodone HCl/Acetaminophen 10 mg PO TID 07/19/16 07/19/16 Unknown [Percocet 10/325 mg] Previous Rx's Medication Instructions Recorded Last Taken Type ALPRAZolam [Xanax TAB] 2 mg PO QDAY PRN #7 tablet 03/03/14 Unknown Rx Cyclobenzaprine HCl [Flexeril 5 MG 5 mg PO TID PRN #20 tab 06/20/17 Unknown Rx TAB] traMADol [Ultram 50 MG tab] 50 mg PO Q8H PRN #15 tablet 06/20/17 Unknown Rx Butalb/Acetamin/Caff 50-325-40 1 tab PO Q6HR PRN #20 tab 09/04/17 Unknown Rx [Fioricet] Lisinopril [Prinivil] 10 mg PO DAILY #30 tablet 09/04/17 Unknown Rx Allergies Allergy/AdvReac Type Severity Reaction Status Date / Time aspirin Allergy Diarrhea Verified 03/08/16 10:05 NSAIDS (Non-Steroidal Allergy Unknown Verified 03/03/14 20:55 Anti-Inflamma Penicillins Allergy Rash Verified 03/03/14 20:55 Heart Score - HEART Score History: Moderately suspicious EKG: Non-specific Age: < 45 Risk factors: 1-2 risk factors Troponin: < normal limit HEART Score: 3 - Critical Actions Critical Actions: 0-3 pts:0.9-1.7%risk of adverse cardiac event.Candidate for discharge ED Review of Systems ROS: Stated complaint: HIGH BP Other details as noted in HPI Comment: All other systems reviewed and negative Constitutional: denies: chills, fever Respiratory: denies: cough, orthopnea, shortness of breath, SOB with exertion, SOB at rest, wheezing Cardiovascular: chest pain. denies: palpitations, dyspnea on exertion, orthopnea Gastrointestinal: denies: abdominal pain, nausea, vomiting, diarrhea, constipation, hematemesis, melena, hematochezia Neurological: denies: headache, weakness, numbness, paresthesias, confusion ED Past Medical Hx - Past Medical History Previous Medical History?: Yes Hx Hypertension: Yes Hx GERD: Yes (PUD) Hx Arthritis: Yes Hx Seizures: Yes (withdrawal from Xanax) Hx Psychiatric Treatment: Yes (anxiety) Hx HIV: No Additional medical history: anxiety, pneumonia - Surgical History Past Surgical History?: Yes Additional Surgical History: Hysterectomy, , tubal ligation. - Social History Smoking Status: Current Every Day Smoker Substance Use Type: Alcohol - Medications Home Medications: Home Medications Medication Instructions Recorded Confirmed Last Taken Type ALPRAZolam [Xanax TAB] 2 mg PO QDAY PRN #7 tablet 03/03/14 07/19/16 Unknown Rx Oxycodone HCl/Acetaminophen 10 mg PO TID 07/19/16 07/19/16 Unknown History [Percocet 10/325 mg] Cyclobenzaprine HCl [Flexeril 5 MG 5 mg PO TID PRN #20 tab 06/20/17 Unknown Rx TAB] traMADol [Ultram 50 MG tab] 50 mg PO Q8H PRN #15 tablet 06/20/17 Unknown Rx Butalb/Acetamin/Caff 50-325-40 1 tab PO Q6HR PRN #20 tab 09/04/17 Unknown Rx [Fioricet] Lisinopril [Prinivil] 10 mg PO DAILY #30 tablet 09/04/17 Unknown Rx ED Physical Exam - General Limitations: No Limitations General appearance: alert, in no apparent distress - Head Head exam: Present: atraumatic, normocephalic, normal inspection - Eye Eye exam: Present: normal appearance - ENT ENT exam: Present: normal exam, normal orophraynx, mucous membranes moist - Neck Neck exam: Present: normal inspection, full ROM. Absent: tenderness, meningismus, lymphadenopathy, thyromegaly - Respiratory Respiratory exam: Present: normal lung sounds bilaterally - Cardiovascular Cardiovascular Exam: Present: regular rate, normal rhythm, normal heart sounds - GI/Abdominal GI/Abdominal exam: Present: soft, normal bowel sounds. Absent: distended, tenderness, guarding, rebound, rigid, organomegaly, mass, bruit, pulsatile mass, hernia - Extremities Exam Extremities exam: Present: normal inspection, full ROM, normal capillary refill. Absent: pedal edema, calf tenderness - Back Exam Back exam: Present: normal inspection, full ROM. Absent: tenderness, CVA tenderness (R), CVA tenderness (L), muscle spasm, paraspinal tenderness, vertebral tenderness - Neurological Exam Neurological exam: Present: alert, oriented X3, CN II-XII intact, normal gait, reflexes normal - Skin Skin exam: Present: warm, intact, normal color ED Course Vital Signs 03/05/18 03/05/18 03/05/18 20:33 21:01 21:07 Temperature 98.3 F Pulse Rate 101 H 101 H 105 H Respiratory 14 20 Rate Blood Pressure 174/110 161/100 Blood Pressure 161/100 [Right] O2 Sat by Pulse 97 95 Oximetry 03/05/18 03/05/18 03/05/18 21:09 21:15 21:30 Temperature Pulse Rate 103 H Respiratory 20 24 24 Rate Blood Pressure 130/90 142/90 Blood Pressure [Right] O2 Sat by Pulse 95 95 Oximetry 03/05/18 03/05/18 03/05/18 21:45 22:00 22:15 Temperature Pulse Rate 85 87 Respiratory 15 21 21 Rate Blood Pressure 127/94 142/97 150/93 Blood Pressure [Right] O2 Sat by Pulse 96 97 96 Oximetry 03/05/18 03/05/18 22:30 22:45 Temperature Pulse Rate 84 83 Respiratory 18 26 H Rate Blood Pressure 154/94 139/91 Blood Pressure [Right] O2 Sat by Pulse 95 96 Oximetry KAMERON score - Kameron Score Aspirin use within the Past 7 Days: (0) No ED Medical Decision Making - Lab Data Result diagrams: 03/05/18 20:47 03/05/18 20:47 - EKG Data -: EKG Interpreted by Nh EKG shows normal: sinus rhythm Rate: normal - EKG Data Interpretation: no acute changes - Radiology Data Radiology results: report reviewed Referring Physician: VINICIUS NORRIS Patient Name: LIBRA MANNING Date of : 1975 Sex: Female Report Date: 2018-03-05 Report Status: Finalized Findings [facility] [address] [place] [address] XRay Report Signed Patient: LIBRA MANNING MR#: [id number] : 1975 Acct:[id number] Age/Sex: 42 / F ADM Date: 03/05/18 Loc: ED Attending Dr: Ordering Physician: VINICIUS NORRIS Date of Service: 03/05/18 Procedure(s): XR chest 1V ap Accession Number(s): [id number] cc: VINICIUS NORRIS Fluoro Time In Minutes: FINAL REPORT PROCEDURE: XR CHEST 1V AP TECHNIQUE: Chest radiograph anteroposterior view. CPT 11566 HISTORY: chest pain COMPARISON: 05/11/2016 FINDINGS: Heart: Normal. Mediastinum/Vessels: Normal. Lungs/Pleural space: Normal. Bony thorax: No acute osseous abnormality. Life support devices: None. IMPRESSION: No acute cardiopulmonary abnormality. Transcribed By: CO Dictated By: ERNESTO GUPTA MD Electronically Authenticated By: ERNESTO GUPTA MD Signed Date/Time: 03/05/182355 DD/ 58 TD/TT: 03/05/182358 - Medical Decision Making Patient is 42 years old female with history of hypertension. Recently started on Norvasc 5 mg. Patient presented to the ER complaining of substernal chest pain for approximately one week now on and off. Patient described her pain as pressure and she noted that her blood pressures really high. Patient stated that her blood pressure was 200/110. Patient denied any headache, neck pain, weakness numbness or tingling sensation. Patient also denied any shortness of breath or palpitations. Patient received nitroglycerin and morphine and Zofran. Patient stated that she is feeling much better Blood pressure now is 138/92. EKG is unremarkable. 2 sets of troponin is negative. Chest x-ray is negative for acute finding. I believe the patient's symptom is most related to increase the blood pressure but I advised the patient to follow-up with her primary care physician in the next 2-3 days for further outpatient workup including stress test. Patient and her significant other understood the instructions very well. Critical care attestation.: If time is entered above; I have spent that time in minutes in the direct care of this critically ill patient, excluding procedure time. ED Disposition Clinical Impression: Chest pain, Malignant hypertension Disposition: TO HOME OR SELFCARE Is pt being admited?: No Condition: Stable Instructions: Chest Pain (ED), Hypertension (ED) Referrals: PRIMARY CARE, [Primary Care Provider] - 3-5 Days [facility] [Provider Group] - 3-5 Days
[2018-03-05 21:21] LABS: BUN/Creatinine Ratio 23; Blood Urea Nitrogen 9 mg/dL (7-17); Calcium 8.8 mg/dL (8.4-10.2); Hemolysis Index 7
[2018-03-05] MEDS ORDERED: MORPHINE ONE (23:39)
[2018-03-05] MEDS ORDERED: ZOFRAN ONE (23:39)
[2018-03-05] MEDS ORDERED: MORPHINE IM ONE (23:56)
[2018-03-05] MEDS ORDERED: ZOFRAN IM ONE (23:56)
--- NOTE | 2018-03-05 23:56 | XRay Report ---
FINAL REPORT PROCEDURE: XR CHEST 1V AP TECHNIQUE: Chest radiograph anteroposterior view. CPT 25826 HISTORY: chest pain COMPARISON: 05/11/2016 FINDINGS: Heart: Normal. Mediastinum/Vessels: Normal. Lungs/Pleural space: Normal. Bony thorax: No acute osseous abnormality. Life support devices: None. IMPRESSION: No acute cardiopulmonary abnormality.
[2018-03-06 01:44] VITALS: BP 161/100
== END 2018-03-06 00:42 | disposition home or self-care (01) ==
LOC: ED 20:16
DX: I10 Essential (primary) hypertension (principal); K21.9 Gastro-esophageal reflux disease without esophagitis; M19.90 Unspecified osteoarthritis, unspecified site; F17.200 Nicotine dependence, unspecified, uncomplicated; F41.9 Anxiety disorder, unspecified; Z87.01 Personal history of pneumonia (recurrent); Z98.51 Tubal ligation status; Z90.710 Acquired absence of both cervix and uterus; Z88.6 Allergy status to analgesic agent; Z88.0 Allergy status to penicillin
CPT/HCPCS: 36415; 71045; 80048; 84484; 85025; 93005; 93010; 96372; 99284; J2270; J2405

== ENCOUNTER 2018-03-09 11:43 | Emergency (ER) | payer SELFPAY ==
[2018-03-09 11:52] VITALS: BP 166/97
[2018-03-09] MEDS ORDERED: XANAX PO ONE (12:33)
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
== END 2018-03-09 14:13 | disposition home or self-care (01) ==
LOC: ED 11:43
DX: R07.89 Other chest pain (principal); F43.9 Reaction to severe stress, unspecified; I10 Essential (primary) hypertension; K21.9 Gastro-esophageal reflux disease without esophagitis; M19.90 Unspecified osteoarthritis, unspecified site; F41.9 Anxiety disorder, unspecified; F17.200 Nicotine dependence, unspecified, uncomplicated; Z90.710 Acquired absence of both cervix and uterus; Z98.51 Tubal ligation status; Z88.6 Allergy status to analgesic agent; Z88.0 Allergy status to penicillin
CPT/HCPCS: 36415; 84484; 93005; 93010; 99283

== ENCOUNTER 2018-05-02 11:53 | Emergency (ER) | payer OTHER ==
--- NOTE | 2018-05-02 11:58 | Emergency Department Report ---
Blank Doc - Documentation Documentation: This is a 42-year-old female that presents with URI symptoms x2 weeks. This initial assessment/diagnostic orders/clinical plan/treatment(s) is/are subject to change based on patient's health status, clinical progression and re- assessment by fellow clinical providers in the ED. Further treatment and workup at subsequent clinical providers discretion. Patient/guardians urged not to elope from the ED as their condition may be serious if not clinically assessed and managed. Initial orders include: 1- Patient sent to [facility] for further evaluation and treatment 2- CXR
[2018-05-02] MEDS ORDERED: ULTRAM PO ONE (12:26)
[2018-05-02] MEDS ORDERED: TESSALON PERLES PO ONE (12:26)
--- NOTE | 2018-05-02 12:28 | Emergency Department Report ---
Minor Respiratory - HPI Chief Complaint: Upper Respiratory Infection Stated Complaint: COLD/COUGH Time Seen by Provider: 05/02/18 11:58 Duration: 2 weeks Pain Location: Chest Severity: moderate Minor Respiratory: Yes Able to Tolerate Fluids, Yes Cough, Yes Sick Contacts, Yes Chest Pain, No Rhinorrhea, No Sore Throat, No Ear Pain, No Hemoptysis, No Shortness of Breath, No Fever Other History: This is a 42-year-old female who presents with a cough for 2 weeks. She reports cough is worse at night. She also complains of a headache and left sided chest discomfort with cough. Past medical history hypertension, arthritis, and GERD. She has a current smoker half a pack per day. ED Review of Systems ROS: Stated complaint: COLD/COUGH Other details as noted in HPI Constitutional: denies: chills, fever Respiratory: cough. denies: shortness of breath, wheezing Cardiovascular: denies: chest pain (chest discomfort with cough to left thigh), palpitations Gastrointestinal: denies: abdominal pain, nausea, diarrhea Musculoskeletal: denies: myalgia Skin: denies: rash, lesions Neurological: denies: headache, weakness, paresthesias ED Past Medical Hx - Past Medical History Hx Hypertension: Yes Hx GERD: Yes (PUD) Hx Arthritis: Yes Hx Seizures: Yes (withdrawal from Xanax) Hx Psychiatric Treatment: Yes (anxiety) Hx HIV: No Additional medical history: anxiety, pneumonia - Surgical History Additional Surgical History: Hysterectomy, , tubal ligation. - Social History Smoking Status: Never Smoker Substance Use Type: None - Medications Home Medications: Home Medications Medication Instructions Recorded Confirmed Last Taken Type hydroCHLOROthiazide [HCTZ] 25 mg PO QDAY #30 tablet 03/06/18 03/09/18 Unknown Rx amLODIPine [Norvasc] 5 mg PO DAILY 03/09/18 03/09/18 Unknown History ALBUTEROL Inhaler(NF) [VENTOLIN 1 puff IH Q4-6H PRN #1 inha 05/02/18 Unknown Rx Inhaler(NF)] Azithromycin [Zithromax Z-EMILEE] 250 mg PO DAILY #6 tablet 05/02/18 Unknown Rx Benzonatate [Tessalon Perle] 100 mg PO TID PRN #30 capsule 05/02/18 Unknown Rx Minor Respiratory Exam - Exam General: Vital signs noted. No distress. Alert and acting appropriately. HEENT: Yes Pharyngeal Erythema (erythematous posterior pharynx, uvula midline), Yes Moist Mucous Membranes, Yes Rhinorrhea (turbinates mildly congested with clear discharge), No Pharyngeal Exudates, No Conjuctival Injection, No Frontal Tenderness, No Maxillary Tenderness Ear: Neither TM Bulge, Neither TM Erythema, Neither EAC Pain, Neither EAC Discharge Neck: Yes Supple, No Adenopathy Lungs: Yes Good Air Exchange, Yes Cough, No Wheezes, No Ronchi, No Stridor, No Labored Respirations, No Retractions, No Use of Accessory Muscles, No Other Abnormal Lung Sounds Heart: Yes Regular, No Murmur Abdomen: Yes Normal Bowel Sounds, No Tenderness, No Peritoneal Signs Skin: No Rash, No Edema Neurologic: Alert and oriented, no deficits. Musculoskeletal: Unremarkable. ED Course Vital Signs 05/02/18 12:00 Temperature 98 F Pulse Rate 119 H Respiratory 16 Rate Blood Pressure 157/108 [Left] O2 Sat by Pulse 96 Oximetry Vital Signs 05/02/18 05/02/18 05/02/18 12:00 12:32 13:40 Temperature 98 F 98 F Pulse Rate 119 H 89 Respiratory 16 16 17 Rate Blood Pressure 157/108 156/106 [Left] O2 Sat by Pulse 96 96 Oximetry ED Medical Decision Making - Radiology Data Radiology results: report reviewed ROUTINE CHEST, TWO VIEWS: HISTORY: Cough. The trachea, heart, mediastinal contour, lung lake and bony thorax are unremarkable. IMPRESSION: Unremarkable chest x-ray. - Medical Decision Making 42 y.o. female that presents with cough for 2 weeks. Patient examined by me and stable. No distress noted. Slightly tachycardic and blood pressure elevated on arrival. Given ibuprofen and benzonatate. Chest x-ray obtained and dictated by radiologist with no acute cardiopulmonary findings. I'll reevaluate blood pressure prior to discharge. Blood pressure trending down and HR 89. Findings on focal exam susceptible of bronchitis. Start azithromycin, benzonatate, and albuterol inhaler. Follow-up with [facility] or [facility]. Patient discharged home stable. Critical care attestation.: If time is entered above; I have spent that time in minutes in the direct care of this critically ill patient, excluding procedure time. ED Disposition Clinical Impression: Cough, Chest discomfort, Bronchitis, Current every day smoker, Asymptomatic hypertension Disposition: -01 TO HOME OR SELFCARE Is pt being admited?: No Does the pt Need Aspirin: No Condition: Stable Instructions: Chronic Bronchitis (ED), Hypertension (ED) Additional Instructions: Wash hands frequently. Complete full course of antibiotics as prescribed. Avoid drinking alcohol while taking his medication. Follow-up with the primary care clinic from the referrals below. Prescriptions: Benzonatate [Tessalon Perle] 100 mg PO TID PRN #30 capsule PRN Reason: Cough ALBUTEROL Inhaler(NF) [VENTOLIN Inhaler(NF)] 1 puff IH Q4-6H PRN #1 inha PRN Reason: Shortness Of Breath Azithromycin [Zithromax Z-EMILEE] 250 mg PO DAILY #6 tablet Referrals: JENY BEYER MD [Primary Care Provider] - 3-5 Days [facility] [Outside] - 3-5 Days [facility] [Outside] - 3-5 Days Forms: Work/School Release Form(ED) Time of Disposition: 13:57
--- NOTE | 2018-05-02 13:00 | XRay Report ---
ROUTINE CHEST, TWO VIEWS: HISTORY: Cough. The trachea, heart, mediastinal contour, lung lake and bony thorax are unremarkable. IMPRESSION: Unremarkable chest x-ray.
[2018-05-02 13:41] VITALS: BP 156/106
== END 2018-05-02 14:04 | disposition home or self-care (01) ==
LOC: ED 11:53
DX: J40 Bronchitis, not specified as acute or chronic (principal); I10 Essential (primary) hypertension; F17.200 Nicotine dependence, unspecified, uncomplicated; K21.9 Gastro-esophageal reflux disease without esophagitis; M19.90 Unspecified osteoarthritis, unspecified site; F41.9 Anxiety disorder, unspecified; Z98.51 Tubal ligation status; Z90.710 Acquired absence of both cervix and uterus; Z88.6 Allergy status to analgesic agent
CPT/HCPCS: 71046